=== PATIENT | female | born 1995 | race Caucasian/White ===

== ENCOUNTER 2018-06-06 22:18 | Outpatient (CLI) | payer MEDICAID | END 2018-06-07 01:00 | disposition home or self-care (01) | LOC: OBT 22:18 → L-D 22:19 | DX: O47.1 False labor at or after 37 completed weeks of gestation (principal); Z3A.38 38 weeks gestation of pregnancy | CPT/HCPCS: 76818 ==

== ENCOUNTER 2018-06-15 06:19 | Inpatient (IN) | payer MEDICAID ==
[2018-06-15] MEDS ORDERED: LACTATED RINGER'S 1,000 ML IV (06:36)
[2018-06-15] MEDS ORDERED: OXYTOCIN 30 UNITS/LR 500 ML IV (07:00)
[2018-06-15] MEDS ORDERED: MISOPROSTOL 200 MCG TAB PR ×2 (07:00→18:30)
[2018-06-15] MEDS: MINERAL OIL LIGHT 10 ML VIAL TOP ×2 (07:00→18:08)
[2018-06-15] MEDS ORDERED: METHYLERGONOVINE 0.2 MG INJ IM ×2 (07:00→18:30)
[2018-06-15] MEDS: LIDOCAINE 0.5% (SDV) 50 ML INJ INFIL ×2 (07:00→18:08)
[2018-06-15] MEDS ORDERED: CARBOPROST 250 MCG INJ IM ×2 (07:00→18:30)
[2018-06-15] MEDS: LACTATED RINGER'S 1,000 ML IV* ×3 (07:18→16:45)
[2018-06-15 07:30] LABS: ADD MAN DIFF? NO
[2018-06-15 07:33] LABS: WHITE BLOOD COUNT 8.4 10^3/ul (4.8-10.8)
[2018-06-15 07:33] LABS: BASOPHILS % 0.2 % (0.0-2.0); EOSINOPHILS % 0.2 % (0.0-7.0); HEMOGLOBIN 12.2 g/dl (12.0-16.0); LYMPHOCYTES # 2.4 10^3/ul (0.8-2.9); LYMPHOCYTES % 28.2 % (15.0-51.0); MEAN CORPUSCULAR HEMOGLOBIN 28.2 pg (29.0-33.0); MEAN CORPUSCULAR VOLUME 85.5 fl (82.0-101.0); MEAN PLATELET VOLUME 12.2 fl (7.4-10.4); MONOCYTE # 0.7 10^3/ul (0.3-0.9); MONOCYTES % 7.7 % (0.0-11.0); NEUTROPHIL # 5.3 10^3/ul (1.6-7.5); NEUTROPHILS % 63.3 % (39.0-77.0); PLATELET COUNT 149 10^3/UL (140-415); RED BLOOD COUNT 4.33 10^6/ul (4.20-5.40); RED CELL DISTRIBUTION WIDTH 13.1 % (11.5-14.5)
[2018-06-15 07:53] LABS: INR 0.93; PROTIME 12.5 Sec (11.9-14.9)
[2018-06-15 07:54] LABS: PARTIAL THROMBOPLASTIN TIME 25.8 Sec (23.0-35.0)
[2018-06-15] MEDS: BUTORPHANOL 2 MG INJ IV ×2 (08:32→13:42)
[2018-06-15 08:35] LABS: HEPATITIS B SURFACE ANTIGEN NEGATIVE (NEGATIVE)
[2018-06-15 15:43] LABS: RAPID PLASMA REAGIN NONREACTIVE (NR)
[2018-06-15] MEDS ORDERED: SENNA/DOCUSATE NA (8.6MG/50MG) TAB PO (18:30)
[2018-06-15] MEDS: IBUPROFEN 600 MG TAB PO ×2 (18:30→23:56)
[2018-06-15] MEDS ORDERED: NACL 0.9% 3 ML SYG IV (18:30)
[2018-06-15] MEDS: OXYTOCIN 30 UNITS/LR 500 ML IV ×3 (18:32→23:02)
[2018-06-15] MEDS: SENNA/DOCUSATE NA (8.6MG/50MG) TAB PO (21:18)
[2018-06-16] MEDS: IBUPROFEN 600 MG TAB PO ×3 (05:37→18:00)
[2018-06-16 07:52] LABS: ADD MAN DIFF? NO
[2018-06-16 07:58] LABS: BASOPHILS % 0.2 % (0.0-2.0); EOSINOPHILS % 0.3 % (0.0-7.0); HEMATOCRIT 36.3 % (37.0-47.0); HEMOGLOBIN 11.7 g/dl (12.0-16.0); LYMPHOCYTES # 2.3 10^3/ul (0.8-2.9); LYMPHOCYTES % 23.3 % (15.0-51.0); MEAN CORPUSCULAR HEMOGLOBIN 28.1 pg (29.0-33.0); MEAN CORPUSCULAR HGB CONC 32.2 g/dl (32.0-37.0); MEAN CORPUSCULAR VOLUME 87.1 fl (82.0-101.0); MEAN PLATELET VOLUME 12.2 fl (7.4-10.4); MONOCYTE # 0.9 10^3/ul (0.3-0.9); MONOCYTES % 8.8 % (0.0-11.0); NEUTROPHIL # 6.7 10^3/ul (1.6-7.5); NEUTROPHILS % 67.1 % (39.0-77.0); PLATELET COUNT 152 10^3/UL (140-415); RED BLOOD COUNT 4.17 10^6/ul (4.20-5.40); RED CELL DISTRIBUTION WIDTH 13.4 % (11.5-14.5)
[2018-06-16 07:58] LABS: WHITE BLOOD COUNT 9.9 10^3/ul (4.8-10.8)
[2018-06-16] MEDS: SENNA/DOCUSATE NA (8.6MG/50MG) TAB PO ×2 (09:06→21:12)
[2018-06-17] MEDS: IBUPROFEN 600 MG TAB PO ×3 (00:52→11:58)
[2018-06-17] MEDS: SENNA/DOCUSATE NA (8.6MG/50MG) TAB PO (09:40)
[2018-06-17] MEDS: OXYCODONE/ACETAMINOPHEN (5/325) TAB PO (09:49)
== END 2018-06-17 14:00 | disposition home or self-care (01) | DRG 807 ==
LOC: OBT 06:19 → L-D 06:21 → OBT 06:30 → L-D 06:30 → PP1 20:47
PROVIDERS: Obstetrics & Gynecology
PROC: 10E0XZZ Delivery of Products of Conception, External Approach (ICD-10-PCS; principal; 2018-06-16)
DX: O80 Encounter for full-term uncomplicated delivery (principal); Z37.0 Single live birth; Z3A.39 39 weeks gestation of pregnancy
CPT/HCPCS: 85025; 85610; 85730; 86592; 86850; 86900; 86901; 87340; 99464